=== PATIENT | male | born 1990 | race Two or more races ===

== ENCOUNTER 2025-06-28 14:37 | Emergency (ER) | payer MEDICAID, SELFPAY ==
[2025-06-28 14:39] VITALS: BMI 21.2
[2025-06-28 15:30] VITALS: BP 132/83; PULSE 91; RESP 18; TEMP 36.6; O2SAT 97
--- NOTE | 2025-06-28 15:30 | XR_ITS ---
Examination: Hand, right 3 views Technique: Hand AP, oblique, lateral 3 views Date and time of exam: June 28, 2025, 1536 hrs. Indications: Injury to the hand today, hand pain. Findings: Acute fracture fourth metacarpal one shaft width offset and dorsal angulation at the fracture site Digits intact Impression: Acute displaced fracture fourth metacarpal
--- NOTE | 2025-06-28 15:31 | PD.EDHAND ---
Upper Extremity Injury RME/HPI General Chief Complaint: Hand/Wrist Problems Stated Complaint: INJURY TO RIGHT HAND YESTERDAY Time Seen by Provider: 06/28/25 14:53 Arrival date/time: 06/28/25 14:37 RME / HPI RME / HPI narrative: 35-year-old male patient was brought in by family for evaluation regarding right hand swelling. Patient was doing a punching bag, and suddenly developed swelling and pain to the right hand, the fifth metacarpal area. Denies any wrist injury denies any other injury. Incident happened yesterday. 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 Related Data Previous Rx's ?Medication ?Instructions ?Recorded ibuprofen 800 mg tablet 800 mg PO Q8H PRN pain #30 tabs 06/28/25 Allergies Allergy/AdvReac Type Severity Reaction Status Date / Time No Known Allergies Allergy Verified 06/28/25 14:42 Review of Systems Review of Systems Narrative Review of Systems: Review of system reviewed and within normal limits except mentioned in HPI ED Exam Narrative Physical exam: VITAL SIGNS: Reviewed. GENERAL APPEARANCE: Alert and interactive, follows commands, no acute distress, HEAD AND FACE: Non-traumatic. ENT: PERRL, pink conjunctivitis, eyelid no trauma, Mucous membrane moist. NECK: Supple, nontender, no nuchal rigidity. CHEST: No tenderness, no crepitus, no paradoxical movement, no retractions. LUNGS: Clear, well ventilated, symmetric, no rales, no wheezing, no ronchi, no stridor, good breath sounds bilaterally. HEART: Regular rate, regular rhythm, no murmur, no gallops. ABDOMEN: Soft, positive bowel sounds, nondistended, no guarding, nontender, no rebound, no masses, RECTAL: Deferred. GENITAL: Deferred. NEUROLOGICAL: Gross motor function intact sensory function intact, Appropriate for age. MUSCULOSKELETAL: low back nontender, full range of motion. EXTREMITIES: Right hand tenderness, tenderness, more on the fifth metacarpal area, full range of motion. No rednessskin breakdown distal neurovascular status intact SKIN: Color pink, dry, no rash, no lacerations, no abrasions, no contusions. LYMPHATICS: Deferred. Course Quality Measures none Orders Category Date Time Status XR hand RT 2V Stat Exams 06/28/25 15:30 Completed Ibuprofen Tab [Motrin Tab] Med 06/28/25 15:30 Discontinued 800 mg PO X1 ONE Vital Signs Vital signs: Vital Signs Temperature 97.8 F 06/28/25 15:30 Pulse Rate 91 06/28/25 15:30 Respiratory Rate 18 06/28/25 15:30 Blood Pressure 132/83 H 06/28/25 15:30 Pulse Oximetry (%) 97 06/28/25 15:30 Oxygen Delivery Method Room Air 06/28/25 15:30 Extremity Injury MDM Narrative [facility] Narrative:: 35-year-old male patient was brought in by family for evaluation regarding right hand swelling. Patient was doing a punching bag, and suddenly developed swelling and pain to the right hand, the fifth metacarpal area. Denies any wrist injury denies any other injury. Incident happened yesterday. 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 X-ray of the hand showed displaced fracture of the fourth metacarpal. Boxer splint was applied, after direct manipulation of the fracture without anesthesia. Patient tolerated the procedure well. Patient was advised to closely follow-up with PCP and for referral to hand surgeon regarding fourth metacarpal fracture. Patient agrees with the plan. Distal neurovascular status intact post splinting. Patient data External records reviewed:: None Clinical information provided by:: patient Social determinants that could affect healthcare access:: none Patient has the following chronic illnesses:: None How is presenting disease/condition affected by chronic disease/condition?: no chronic disease Evaluation data The following diagnostics were reviewed and interpreted by me:: radiology exam(s) Lab and/or radiology exams considered but not ordered:: None Interpretation Summary: See results [facility] Medications / Prescriptions Medications or Prescriptions considered but not ordered:: None Medication administrations:: Medication Administration History Discontinued Medications Ibuprofen (Ibuprofen Tab 400 Mg Tablet) 800 mg PO X1 ONE Stop: 06/28/25 15:31 Motrin Consultations Consultation(s) initiated? (list below): No Diagnosis Upper Extremity Injury Differential Diagnosis: fracture of hand and other (Boxer's fracture, fourth metacarpal fracture) Most likely diagnosis given after review of the tests above:: Fourth metacarpal fracture closed, right Admission Indicated Admission indicated?: not indicated Explain why admission is indicated or not indicated:: None Admission Request Was there a request for admission?: No Admission Attestation Admission request attestation: Stable Disposition Plan Disposition Plan: Discharge Discharge Attestation Discharge Attestation: The patient was given an opportunity to ask questions and understood the discharge instructions. Discharge instructions specifically effects, indications for sooner follow up or return to the emergency department, and the expected course of current diagnosis. Patient condition: Stable Discharge Plan Plan Patient Disposition: HOME (Self Care) Discharge Disposition comment: Stable Prescriptions/Referrals Prescriptions/Med Rec: New ibuprofen 800 mg tablet 800 mg PO Q8H PRN (Reason: pain) Qty: 30 0RF Problem List Clinical Impression: Closed fracture of fourth metacarpal bone Patient/Caregiver Discharge Instructions Discharge Activity: activity as tolerated Education Materials: ED Closed Hand Fracture (Adult) Additional Instructions: Thank you for the opportunity for serving you today. You are stable for discharged . You are advised to: Follow-up with your PCP in 1 to 2 days and asked for referral to hand surgeon Return to ED for worsening of symptoms Increase oral fluids Take medication as prescribed Please do not remove your hand splint for the next 4 weeks or until seen by hand specialist surgeon. Print Language: Tajik Stand Alone Forms: Fátima Award Info., Patient Portal Info Letter PATRICIA/ANITA Supervising Physician JEWELL Supervising Physician: MD Tom
[2025-06-28] MEDS: IBUPROFEN TAB 400 MG TABLET 800 MG PO (16:18)
== END 2025-06-28 16:20 | disposition home or self-care (01) ==
LOC: SERX 16:36
PROVIDERS: Emergency Provider Emergency Medicine
DX: S62.324A Displaced fracture of shaft of fourth metacarpal bone, right hand, initial encounter for closed fracture (principal); W21.89XA Striking against or struck by other sports equipment, initial encounter; Y93.71 Activity, boxing
CPT/HCPCS: 29130; 73120; 99282; A9270

== ENCOUNTER 2025-07-09 22:23 | Emergency (ER) | payer MEDICAID, SELFPAY ==
[2025-07-09 22:24] VITALS: BP 141/81; PULSE 87; RESP 18; TEMP 36.7; O2SAT 99; BMI 22.9
--- NOTE | 2025-07-09 22:40 | XR_ITS ---
Examination: Hand, right Technique: Hand AP, oblique, lateral 3 views Date and time of exam: July 09, 2025 1110 hrs., Comparison 06/28/2025 Indications: Acute fracture fourth metacarpal 06/28/2025. Findings: Again noted fracture fourth metacarpal with one shaft width offset, angulation and overriding Impression: Again noted fracture fourth metacarpal with one shaft width offset and angulation and overriding No significant callus formation
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
== END 2025-07-10 02:36 | disposition home or self-care (01) ==
PROVIDERS: Emergency Provider Emergency Medicine; PCP Family Medicine
DX: S62.304A Unspecified fracture of fourth metacarpal bone, right hand, initial encounter for closed fracture (principal); W22.8XXA Striking against or struck by other objects, initial encounter
CPT/HCPCS: 29125; 73130; 99284